=== PATIENT | female | born 1950 | race Caucasian/White ===

== ENCOUNTER → 2017-12-20 | Outpatient (CLI) | payer MEDICARE, OTHER ==
[~2017-12-20] MED LIST: ADVAIR 250/501 EA INH; AMOXICILLIN500 M2 PO; ASPIRIN325 M2 PO; ASPIRIN81 M1 PO; CELEXA20 MG PO; CIPRO500 MG PO; CYCLOBENZAPRINE5 M3 PO; DELTASONE20 MG PO; FLAGYL500 MG PO; GABAPENTIN400 MG PO; HYDROCODONE BIT1 T11 PO; K-Dur 20MEQ20 MEQ PO; LEVOFLOXACIN500 MG PO; LITHIUM CARBON300 MG PO; LOPRESSOR25 MG PO; LORAZEPAM1 MG PO; MUCINEX D 600 M1 TE1 PO; MULTIPLE VITAMI1 TAB PO; Miralax Powder255 GM PO; NAPROSYN500 MG PO; NAPROXEN SOD550 MG PO; OXYBUTYNIN5 MG PO; PERCOCET 325 MG1 TA7 PO; PRILOSEC40 MG PO; PROAIR HFA0.09 MG/AC IH; PROTONIX40 MG PO; REMERON SOLTAB15 MG PO; SPIRIVA 5 CAPS18 MCG INH; SYMBICORT1 AER IH; TYLENOL W/CODEI1 TA2 PO; VENTOLIN H0.09 MG/AC INH; VIBRAMYCIN100 MG PO; WARFARIN2 MG PO
== END | disposition home or self-care (01) ==
LOC: RAD 13:40
DX: M54.5 Low back pain (principal); M54.2 Cervicalgia; M54.9 Dorsalgia, unspecified

== ENCOUNTER → 2018-02-01 | Outpatient (CLI) | payer MEDICARE, OTHER | LOC: MAMMO 10:15 | DX: Z12.31 Encounter for screening mammogram for malignant neoplasm of breast (principal); M85.859 Other specified disorders of bone density and structure, unspecified thigh; Z78.0 Asymptomatic menopausal state; Z90.710 Acquired absence of both cervix and uterus ==

== ENCOUNTER → 2018-03-02 | Outpatient (CLI) | payer MEDICARE, OTHER | END | disposition home or self-care (01) | LOC: RAD 10:27 | DX: M54.6 Pain in thoracic spine (principal) ==

== ENCOUNTER 2018-10-22 09:59 | Emergency (ER) | payer OTHER ==
[~2018-10-22] VITALS: Ht 175.2 cm; Wt 54.0 kg
--- NOTE | ~2018-10-22 | EKG ---
[place], [place] ELECTROCARDIOGRAM REPORT NAME: NYA IBARRA UNIT #: [id number] ROOM: DOCTOR: EPIPHANY DRAFT REPORT BIRTHDATE: [birth year] [facility] Test Date: 2018-10-22 Test Time: 10:00:57 Pat Name: NYA IBARRA Department: Room: Gender: F Natural Resource Technician: Glendy Triana : 1950 Requested By: BONITA WILSON Order Number: [id number] Reading MD: Aftab Vasquez MD Measurements Intervals [place] Rate: 112 P: 255 [place]: 108 QRS: -16 QRSD: 88 T: 185 QT: 368 QTc: 503 Interpretive Statements Sinus or ectopic atrial tachycardia Consider left ventricular hypertrophy Abnrm T, probable ischemia, anterolateral lds ST elevation, consider lateral injury Prolonged QT interval Artifact in lead(s) II,aVR,aVF,V4,V5,V6 No previous ECG available for comparison Electronically Signed On 10-23-2018 3:59:24 PST by Aftab Vasquez MD CM:EKGRPT:ELECTROCARDIOGRAM REPORT [id number] BONITA SALINAS DRAFT REPORT BONITA WILSON MD
--- NOTE | ~2018-10-22 | EKG ---
[place], [place] ELECTROCARDIOGRAM REPORT NAME: NYA IBARRA UNIT #: [id number] ROOM: DOCTOR: EPIPHANY DRAFT REPORT BIRTHDATE: [birth year] [facility] Test Date: 2018-10-22 Test Time: 10:09:50 Pat Name: NYA IBARRA Department: Room: Gender: F Software Clerk: Glendy Triana : 1950 Requested By: BONITA WILSON Order Number: [id number] Reading MD: Aftab Vasquez MD Measurements Intervals [place] Rate: 105 P: 72 MT: 238 QRS: -20 QRSD: 90 T: 227 QT: 350 QTc: 463 Interpretive Statements Sinus tachycardia Prolonged MT interval Left ventricular hypertrophy Anterior infarct, acute ST elevation, consider inferior injury No previous ECG available for comparison Electronically Signed On 10-23-2018 3:59:29 PST by Aftab Vasquez MD CM:EKGRPT:ELECTROCARDIOGRAM REPORT [id number] BONITA SALINAS DRAFT REPORT BONITA WILSON MD
--- NOTE | ~2018-10-22 | EKG ---
[place], [place] ELECTROCARDIOGRAM REPORT NAME: NYA IBARRA UNIT #: [id number] ROOM: DOCTOR: EPIPHANY DRAFT REPORT BIRTHDATE: [birth year] [facility] Test Date: 2018-10-22 Test Time: 11:53:32 Pat Name: NYA IBARRA Department: Room: Gender: Production Control Clerk: [id number] : 1950 Requested By: BONITA WILSON Order Number: [id number] Reading MD: Aftab Vasquez MD Measurements Intervals [place] Rate: 121 P: 264 [place]: 110 QRS: -15 QRSD: 85 T: 227 QT: 350 QTc: 497 Interpretive Statements Sinus or ectopic atrial tachycardia Consider left ventricular hypertrophy Abnormal T, probable ischemia, widespread Anterior ST elevation, probably due to LVH Baseline wander in lead(s) V5,V6 No previous ECG available for comparison Electronically Signed On 10-23-2018 4:00:36 PST by Aftab Vasquez MD CM:EKGRPT:ELECTROCARDIOGRAM REPORT [id number] BONITA SALINAS DRAFT REPORT BONITA WILSON MD
[~2018-10-22 09:59] MED LIST changes: +MULTIPLE VITAM1 EAC1 PO; -MULTIPLE VITAMI1 TAB PO
[2018-10-22 10:26] LABS: BASO % 0.4 % (0.0-1.0); HEMATOCRIT 53.9 % (37.0-47.0); HEMOGLOBIN 17.5 g/dl (12.0-16.0); LYMPH # 0.9 10*3/uL (1.3-4.4); LYMPH % 9.3 % (27.0-41.0); MEAN CELL VOLUME 93.3 fl (81.0-99.0); MEAN CORPUSCULAR HGB 30.3 pg (27.0-31.0); MEAN CORPUSCULAR HGB CONC 32.5 g/dl (33.0-37.0); MEAN PLATELET VOLUME 11.3 fl (9.6-12.3); MONO # 0.8 10*3/uL (0.1-1.0); MONO % 8.4 % (3.0-9.0); NEUT % 81.6 % (47.0-73.0); PLATELET COUNT AUTOMATED 175 10*3/uL (130-400); RED BLOOD COUNT 5.78 10*6/uL (4.10-5.10); RED CELL DISTRI WIDTH 13.3 % (0-14.5); WHITE BLOOD COUNT 9.8 10*3/uL (4.8-10.8)
[2018-10-22 10:39] LABS: ACT PARTIAL THROMBO TIME 28.4 SECONDS (20.8-31.5); INTERNATIONAL NORM RATIO 1.3 (2.0-3.5)
[2018-10-22 11:06] LABS: ALBUMIN 3.4 gm/dl (3.1-4.5); ALKALINE PHOSPHATASE 86 U/L (45-117); BUN 11 mg/dl (7-24); CHLORIDE 101 mmol/L (98-107); CREATININE 1.03 mg/dL (0.55-1.02); POTASSIUM 3.4 mmol/L (3.5-5.1); SGOT/AST 34 IU/L (3-35); SGPT/ALT 24 U/L (12-78); SODIUM 139 mmol/L (136-145); TOTAL PROTEIN 8.4 gm/dL (6.4-8.2)
[2018-11-20] MEDS ORDERED: VITAMIN D32000 UNI1 PO (11:45)
[2018-11-20] MEDS ORDERED: ENOXAPARIN40 MG/0.2 SC (11:45)
[2018-11-20] MEDS ORDERED: LASIX40 MG PO (11:45)
[2018-11-23] MEDS ORDERED: RIVASTIGMINE TAR3 M1 PO (09:17)
[2018-11-23] MEDS ORDERED: RISPERIDONE1 MG PO (09:17)
[2018-11-23] MEDS ORDERED: MIRTAZAPINE15 M2 PO (09:17)
== END 2018-10-22 12:45 | disposition short-term general hospital (02) ==
LOC: ED 09:59
PROVIDERS: Emergency Medicine
DX: I21.4 Non-ST elevation (NSTEMI) myocardial infarction (principal); Z91.013 Allergy to seafood; Z79.899 Other long term (current) drug therapy; Z79.82 Long term (current) use of aspirin

== ENCOUNTER 2018-10-29 11:22 | Inpatient (IN) | payer OTHER ==
[2018-10-29] VITALS (8 sets, daily range): BP systolic 113–124; BP diastolic 51–70
[~2018-10-29] VITALS: Ht 175.2 cm; Wt 53.2 kg
--- NOTE | ~2018-10-29 | PR ---
[place], [place] PROGRESS NOTE NAME: NYA IBARRA UNIT #: [id number] ROOM: 521 DOCTOR: LAURA MCLAIN MD,VIRAL BIRTHDATE: [birth year] DOS: 11/01/2018 PULMONARY PROGRESS NOTE SUBJECTIVE: The patient continued with severe cough, which is noted nonproductive. The patient is n.p.o. past midnight bronchoscopy planned for today. Shortness of breath occurs with exertion, but it is improving. The wheezing has been still noted intermittently. There were no symptoms of chest pain. Chest tightness was reported. The patient denies symptoms of fever or chills. Denies symptoms of hemoptysis, headache or diplopia. Denies any symptoms of nausea, vomiting. Medications were reviewed. They were noted all negative. PHYSICAL EXAMINATION: VITAL SIGNS: Normal temperature, respiratory rate of 18-20, heart rate of 66-59, blood pressure 148/76-141/79. Pulse oxygen saturation on 2 liters nasal cannula was 96% saturation. HEENT: Examination shows head was atraumatic. Eyes nonicterus. NECK: Supple. CARDIOVASCULAR: S1, S2 audible. LUNGS: Generalized reduced air entry of the lung was still noted with question of wheezing. There were no crackles. ABDOMEN: Soft, nontender. Bowel sounds present. EXTREMITIES: Without any acute edema. MUSCULOSKELETAL: Without acute deformities. CENTRAL NERVOUS SYSTEM: Cranial nerves 2-12 intact. LABORATORY DATA: CBC today: WBC count 13.6, remaining CBC was normal. The BMP that was done this morning, BUN 19, creatinine was normal. Potassium 5.7, mildly elevated sodium 135. The blood culture, which were taken on admission on the 10/30/2018, so far showed no bacterial growth. IMPRESSION: 1. Acute pneumonia. The patient with severe mucoid impaction of the airways, greater on the right than the left side. 2. Acute exacerbation of chronic obstructive pulmonary disease as well. PLAN OF MANAGEMENT: Proceed with the fiberoptic bronchoscopy as planned for this patient at this time. No changes in medical management will be necessary. Medication adjustment or others if necessary will be done after bronchoscopy. Continue oxygen supplementation, maintain pulse ox 92% or greater. [place], [place] PROGRESS NOTE NAME: NYA IBARRA UNIT #: [id number] ROOM: 521 DOCTOR: VIRAL BAUM MD BIRTHDATE: [birth year] VIRAL SANCHEZ MD CM:SHANT [id number] VIRAL MCLAIN MD 11/01/18 165 interface
--- NOTE | ~2018-10-29 | CON ---
[place], [place] REPORT OF CONSULTATION [id number] UNIT #: [id number] ROOM: 521 DOCTOR: VIRAL BAUM MD BIRTHDATE: [birth year] DOS: 10/30/2018 PULMONARY CONSULTATION, EVALUATION AND MANAGEMENT REASON FOR CONSULTATION: Assess the patient for exacerbation of COPD. HISTORY OF PRESENT ILLNESS: This is a 68-year-old white female patient who has been known to me with history of COPD. The patient with chronic nicotine dependence. She has been admitted to the hospital under hospice services on 10/29/2018. She has been admitted to the hospital under the hospitalist service as the patient has been reported with symptoms of increasing shortness of breath. She has been sent to the Emergency Room from the primary care physician's office for the further assessment of current ongoing respiratory symptoms, which are described to be severe chest pain. The patient was not reported excessive chest congestion, productive cough and noted shortness of breath and wheezing. She has been recently sent from the Emergency Room to [facility] because of non-ST segment elevation myocardial infarction. She underwent cardiac catheterization as reported in the history with EF noted decreased at 30% and the coronary artery. The patient could not be stented. She has a LifeVest placed because of current decreased ejection fraction and for further medical management. This morning, she was sitting on the bed noted intermittent cough without any sputum expectoration. Denies any symptoms of chest pain. REVIEW OF SYSTEMS: CONSTITUTIONAL SYMPTOMS: Fatigue and tiredness noted. EYES: Denies any burning, redness, or tenderness. EARS, NOSE, AND THROAT: Denies sore throat, hoarseness, otalgia, postnasal drainage or epistaxis. CARDIOVASCULAR: Denies angina pain, edema or pain of the lower extremities. GASTROINTESTINAL: Denies dysphagia, nausea, vomiting, diarrhea, abdominal pain, hematemesis, melena, or hematochezia. GENITOURINARY: No dysuria, suprapubic pain or hematuria. MUSCULOSKELETAL: The patient was not reported with any joint pain, redness or tenderness. CENTRAL NERVOUS SYSTEM: Confusion noted on admission seemed to be clear at this time. The patient noted fully awake, alert, oriented. There were no history of seizures reported. Remaining systems were reviewed, they were noted all negative. PAST MEDICAL HISTORY: 1. Known with history of COPD/centrilobular emphysema. 2. History of coronary artery disease. 3. Recent non-ST segment elevation myocardial infarction. 4. Hepatitis C. 5. Hyperlipidemia. 6. History of urinary incontinence previously. 7. History of intermittent marijuana use. 8. Peripheral vascular disease. [place], [place] REPORT OF CONSULTATION NAME: NYA IBARRA UNIT #: [id number] ROOM: 521 DOCTOR: SHAYY BAUM MDM BIRTHDATE: [birth year] 9. Nicotine dependence. PAST SURGICAL HISTORY: Reported a; 1. Tubal ligation. 2. Cholecystectomy. 3. Foot surgery. 4. Left hip surgery of the patient after the accident. 5. Complete hysterectomy. 6. Cardiac catheterization. SOCIAL HISTORY: The patient is and lives at home. Denies the history of alcohol use. History of intermittent marijuana use was known. The patient does report tobacco use, long-term smoking at least a pack of cigarettes per day. FAMILY HISTORY: The patient was reported that father at the age of 87 with complication of prostate cancer, mesothelioma. Mother at age of 7070 years old with complication of heart problems, congestive heart failure and coronary artery disease. HOME MEDICATIONS: Listed Ventolin HFA, Zyrtec, citalopram, Plavix, Lasix, lisinopril, lovastatin, metoprolol tartrate, multivitamin, potassium chloride, and Lyrica. CURRENT MEDICATIONS: Administered on this hospitalization were noted as Aldactone, Imdur, metoprolol succinate, Plavix, lisinopril, citalopram, Lovenox for DVT prophylaxis, oxybutynin chloride, simvastatin, Mucinex, Solu-Medrol 40 mg b.i.d., DuoNeb, IV vancomycin, Levaquin and Zosyn. DRUG ALLERGIES: NOTED ALLERGIES TO THE SHELLFISH. PHYSICAL EXAMINATION: GENERAL: This is a 68-year-old white female patient currently sitting on side of bed without any distress. Height of 5 feet 9 inches, weight 243 pounds, BMI 21. VITAL SIGNS: For the patient which were recorded shows a normal temperature, respiratory rate 18-19, heart rate 74-68, blood pressure 124/71-117/59. Pulse oxygen saturation 99% saturation on room air. HEENT: Head was atraumatic. Eyes nonicterus. NECK: Supple. CARDIOVASCULAR: S1, S2 is audible. LUNGS: The patient was noted with general reduction in breath sounds with expiratory wheezing without any crackles. ABDOMEN: Soft, flat, nontender, bowel sounds present. EXTREMITIES: Without any acute edema. MUSCULOSKELETAL: Without acute deformities. CENTRAL NERVOUS SYSTEM: Cranial nerves 2-12 intact. LABORATORY DATA: CT scan of the head done in the Emergency Room yesterday for the assessment of confusion. The patient was reported no acute intracranial [place], [place] REPORT OF CONSULTATION NAME: NYA IBARRA UNIT #: [id number] ROOM: 521 DOCTOR: LAURA MCLAIN MD,VIRAL BIRTHDATE: [birth year] abnormalities. Moderate small vessel ischemic changes noted. Troponins noted minimally elevated at 0.69-0.57 yesterday as well. CBC that was done yesterday in the Emergency Room does have 0.2, hemoglobin 17.3, hematocrit 52.1, platelet count was normal. CMP that was done as normal BUN and creatinine, glucose 173. CO2 was 3. This morning CBC was noted as normal. PT/INR was noted normal this morning. BMP that was done this morning, glucose 144. BUN and creatine normal. CO2 of 39, remaining electrolytes were normal as well. Arterial blood gas, pH of 7.45, pCO2 of 38, pO2 66 on 2 liters nasal cannula. Chest x-ray one-view done showed changes of COPD, hyperinflation of the lungs without any acute pulmonary infiltration. CT scan of the chest that was done without contrast yesterday reviewed as well, does not show any acute pulmonary infiltration, mucus impaction was noted in multiple subsegments of the right and the left lower lobe and diffuse emphysema changes was noted in the lungs appeared to be panlobular in appearance. The lack of the IV contrast does limit the mediastinal structure view; however, there was no gross lymphadenopathy noted in the mediastinal structures. 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 IMPRESSION: 1. The patient who has been currently admitted to the hospital noted with severe acute exacerbation of chronic obstructive pulmonary disease with mucus impaction in the major airways was noted mucocele. 2. Chronic persistent nicotine dependence as well. 3. History of recent non-ST segment myocardial infarction, which was currently treated conservatively, not amenable for further management. 4. Appeared to be panlobular emphysema related to alpha-1 antitrypsin deficiency cannot be excluded. 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 5. History of general anxiety disorder. 6. Admission for this patient findings of elevation of the hematocrit most likely secondary to volume contraction patient and/or secondary polycythemia would be considered because of chronic hypoxia. PLAN OF MANAGEMENT: She has been started on nicotine replacement patches. We will consider fiberoptic bronchoscopy to help clear mucus impaction, which are noted severe. Continue current dose of Solu-Medrol. Change the DuoNeb to albuterol sulfate for COPD management. Obtain the sputum for Gram stain and culture. The patient was noted very broad spectrum intravenous antibiotics, all the antibiotic will be discontinued. The patient was started on oral doxycycline that should suffice medical acute bronchitis. Other therapy, plan of management. Additional treatment changes will be made based on the progression of the illness. Supportive care therapy, plan of management care as well. Additional treatment changes will be recommended based on the progression of the illness. Oxygen supplementation if necessary to maintain a pulse ox saturation 92% or greater. Usual care with other therapies plan and management as well. Thanks for allowing me to participate in the care of this patient. [place], [place] REPORT OF CONSULTATION NAME: NYA IBARRA UNIT #: [id number] ROOM: 521 DOCTOR: VIRAL BAUM MD BIRTHDATE: [birth year] VIRAL SANCHEZ MD CM:CONSTR:REPORT OF CONSULTATION 1259 10/30/182022 interface
--- NOTE | ~2018-10-29 | EKG ---
[place], [place] ELECTROCARDIOGRAM REPORT NAME: NYA IBARRA UNIT #: [id number] ROOM: 521 DOCTOR: BRAD DRAFT REPORT BIRTHDATE: [birth year] [facility] Test Date: 2018-10-29 Test Time: 14:25:59 Pat Name: NYA IBARRA Department: Room: 521 Gender: F Crab Catcher: Glendy Triana : 1950 Requested By: ARLENE BROTHERS Order Number: [id number] Reading MD: Pedro Scott MD Measurements Intervals [place] Rate: 69 P: 85 [place]: 202 QRS: 13 QRSD: 90 T: 136 QT: 471 QTc: 505 Interpretive Statements Sinus rhythm Left ventricular hypertrophy Abnrm T, probable ischemia, anterolateral lds Prolonged QT interval Baseline wander in lead(s) V1 Compared to ECG 10/22/2018 11:53:32 Prolonged QT interval now present T-wave abnormality no longer present T-wave abnormality no longer present ST (T wave) deviation no longer present Possible ischemia still present Electronically Signed On 11-02-2018 9:41:17 PDT by Pedro Scott MD CM:EKGRPT:ELECTROCARDIOGRAM REPORT [id number] 0941 ARLENE GILLESPIE DRAFT REPORT ARLENE BROTHERS DO
--- NOTE | ~2018-10-29 | PR ---
[place], [place] PROGRESS NOTE NAME: NYA IBARRA [facility] #: [id number] UNIT #: [id number] ROOM: 521 DOCTOR: LAURA MCLAIN MD,VIRAL BIRTHDATE: [birth year] DOS: 10/31/2018 SUBJECTIVE: She has been noted comfortable at this time, resting on the bed, still noted significant cough, but there was no sputum expectoration. Denies symptoms of fever or chills. Denies symptoms of hemoptysis. Denies symptoms of nausea or vomiting. The patient was continued, bronchodilators, oxygen supplementation, corticosteroids without any changes. Oxygen requirement, the patient remains the same as of yesterday. Denies symptoms of headache, or diplopia. Remaining systems were reviewed. They were noted all negative. PHYSICAL EXAMINATION: GENERAL: The patient was currently comfortably lying in the bed without acute distress. VITAL SIGNS: At this morning assessment with a normal temperature recorded this morning, respirations 18, heart rate 71, blood pressure 118/64. The pulse oxygen saturation on 3 liters nasal cannula 97% saturation. HEENT: Examination shows head was atraumatic. Eyes nonicterus. NECK: Supple. CARDIOVASCULAR: S1, S2 audible. LUNGS: Noted decreased breath sounds bilateral. Expiratory wheezing, no crackles. ABDOMEN: Soft, nontender. Bowel sounds present. EXTREMITIES: Without acute edema. MUSCULOSKELETAL: Without any acute deformities. CENTRAL NERVOUS SYSTEM: Cranial nerves 2-12 intact. LABORATORY DATA: Arterial blood gas, pH of 7.45, pCO2 of 38, pO2 of 66.3. Ammonia level noted as 12. IMPRESSION: 1. The patient was noted with an ongoing acute exacerbation of chronic obstructive pulmonary disease with acute pneumonia with a severe impaction of the patient in the endobronchial tree for bilaterally were noted, greater on the right than the left side in the lower lungs. 2. History of chronic nicotine dependence for as well and other medical illnesses. PLAN OF THERAPY: Continuation of the bronchodilators and oxygen supplementation as planned. Continuation of the bronchodilators. Continue corticosteroids. Oxygen supplementation to maintain pulse oxygen saturation 90% or greater. The patient was assessed with therapeutic bronchoscopy that will be done tomorrow morning. She was agreeable for the procedure. The risk and benefits were discussed. N.p.o. past midnight status will be achieved today. [place], [place] PROGRESS NOTE NAME: NYA IBARRA UNIT #: [id number] ROOM: 521 DOCTOR: VIRAL BAUM MD BIRTHDATE: [birth year] VIRAL SANCHEZ MD CM:PNTRANS 5 5 VIRAL MCLAIN MD 10/31/18905 interface
--- NOTE | ~2018-10-29 | EKG ---
[place], [place] ELECTROCARDIOGRAM REPORT NAME: NYA IBARRA UNIT #: [id number] ROOM: 521 DOCTOR: BRAD DRAFT REPORT BIRTHDATE: [birth year] [facility] Test Date: 2018-10-29 Test Time: 17:32:38 Pat Name: NYA IBARRA Department: Room: 521 Gender: F Marketing Technology Coordinator: Glendy Triana : 1950 Requested By: ARLENE BROTHERS Order Number: [id number] Reading MD: Pedro Scott MD Measurements Intervals [place] Rate: 65 P: 71 [place]: 215 QRS: 4 QRSD: 87 T: 191 QT: 506 QTc: 527 Interpretive Statements Sinus rhythm Borderline prolonged MI interval LVH w/ repol abnormalities, possible ischemia Prolonged QT interval Baseline wander in lead(s) V3,V4 Compared to ECG 10/22/2018 11:53:32 Prolonged QT interval now present T-wave abnormality no longer present T-wave abnormality no longer present ST (T wave) deviation no longer present Possible ischemia still present Electronically Signed On 11-02-2018 9:41:35 PDT by Pedro Scott MD CM:EKGRPT:ELECTROCARDIOGRAM REPORT [id number] 0941 ARLENE GILLESPIE DRAFT REPORT ARLENE BROTHERS DO
--- NOTE | ~2018-10-29 | EKG ---
[place], [place] ELECTROCARDIOGRAM REPORT NAME: NYA IBARRA UNIT #: [id number] ROOM: 521 DOCTOR: BRAD DRAFT REPORT BIRTHDATE: [birth year] [facility] Test Date: 2018-10-29 Test Time: 11:29:50 Pat Name: NYA IBARRA Department: Room: 521 Gender: F Supervisor Curing Room: Glendy Triana : 1950 Requested By: ARLENE BROTHERS Order Number: [id number] Reading MD: Pedro Scott MD Measurements Intervals [place] Rate: 63 P: 82 [place]: 201 QRS: -11 QRSD: 91 T: 238 QT: 496 QTc: 508 Interpretive Statements Sinus rhythm Consider left atrial enlargement Left ventricular hypertrophy Abnormal T, probable ischemia, widespread Prolonged QT interval Compared to ECG 10/22/2018 11:53:32 Prolonged QT interval now present ST (T wave) deviation no longer present T-wave abnormality still present Possible ischemia still present Electronically Signed On 11-02-2018 9:40:56 PDT by Pedro Scott MD CM:EKGRPT:ELECTROCARDIOGRAM REPORT [id number] 0940 ARLENE GILLESPIE DRAFT REPORT ARLENE BROTHERS DO
--- NOTE | ~2018-10-29 | PR ---
[place], [place] PROGRESS NOTE [facility]: [facility]RA [id number] UNIT #: [id number] ROOM: 521 DOCTOR: VIRAL BAUM MD BIRTHDATE: [birth year] DOS: 11/03/2018 PULMONARY PROGRESS NOTE SUBJECTIVE: The patient continued to show improvement and reduction in the respiratory symptoms, were not requiring any oxygen supplementation this morning, comfortably sitting on the chair. Denies symptoms of chest pain, fever or chills, shortness of breath has been improving. She was ambulating. OBJECTIVE: VITAL SIGNS: For the patient, which have recorded shows the temperature recorded normal, respiratory rate 16, heart rate 63, blood pressure 135/65. Her pulse oxygen saturation on room air at rest was 94% saturation. HEENT: Head was atraumatic. Eyes: No icterus. NECK: Supple. CARDIOVASCULAR: S1, S2 audible. LUNGS: The patient without any wheeze or crackles. ABDOMEN: Soft, nontender. Bowel sounds present. EXTREMITIES: The patient was noted without any acute edema. LABORATORY DATA: The chest x-ray that was done this morning shows marked improvement and resolution of acute pulmonary infiltration. The left lower lobe with improvement in aeration, severe COPD changes, hyperinflation were noted. The cultures of the bronchial washing noted normal darien. IMPRESSION: 1. Resolving acute pneumonia with marked improvement acute exacerbation of chronic obstructive pulmonary disease. 2. History of chronic nicotine dependence. PLAN OF MANAGEMENT: The patient could be discharged home from the pulmonary standpoint. Outpatient follow up to be established in the office post-discharge of hospital. [place], [place] PROGRESS NOTE NAME: NYA IBARRA UNIT #: [id number] ROOM: 521 DOCTOR: VIRAL BAUM MD BIRTHDATE: [birth year] VIRAL SANCHEZ MD CM:PNTRANS 1504 1557 VIRAL MCLAIN MD 11/03/18 1556 interface
--- NOTE | ~2018-10-29 | PROC NOTE ---
[place], [place] PROCEDURE NOTE [id number] UNIT #: [id number] ROOM: 521 DOCTOR: LAURA MCLAIN MD,VIRAL BIRTHDATE: [birth year] DOS: 11/01/2018 FIBEROPTIC BRONCHOSCOPY NOTE PREOPERATIVE DIAGNOSES: The patient has severe impaction of the mucosa noted in endobronchial tree bilaterally with evidence of acute pneumonia and nonproductive cough. POSTOPERATIVE DIAGNOSES: Removal of the severe impaction of the mucus in the lower lungs predominant bilaterally. COMPLICATIONS: None. SEDATION: Conscious sedation. PROCEDURE DESCRIPTION: Informed consent obtained for the patient. The patient brought to the OR and placed in supine position. Conscious sedation administered by the Anesthesia Department. After that, airway introduced in the mouth. Bronchoscope advanced to airway into laryngeal area. Epiglottis and vocal cord seen. Vocal cords moving symmetrically with movements, yellowish in color. The bronchoscope advanced to the vocal cord into the tracheal lumen noted with moderate amount of very thick mucoid secretion suctioned out the jaime level. The right upper, right middle, right lower, left upper, lingular lower bronchi all examined. Large amount of mucus impaction noted mainly in the right and the left lower lobe endobronchial tree. Bronchial washing taken all the bronchial subsegments. There were no endobronchial obstructive lesions seen. Procedure well tolerated by the patient without any difficulty. Postoperative finding will be discussed with the patient once the patient recovered from the effects of acute sedation. VIRAL SANCHEZ MD CM:PROCNOTE:PROCEDURE NOTE 1231 1651 VIRAL MCLAIN MD
--- NOTE | ~2018-10-29 | PR ---
[place], [place] PROGRESS NOTE NAME: NYA IBARRA UNIT #: [id number] ROOM: 521 DOCTOR: VIRAL BAUM MD BIRTHDATE: [birth year] DOS: 11/02/2018 PULMONARY PROGRESS NOTE SUBJECTIVE: She has a bronchoscopy done yesterday with copious amount of secretion removed from the endobronchial tree. She has been noted severe impaction of the mucus in the airways as well. She has not been noted symptoms of fever or chills. Denies symptoms of hemoptysis. Denies symptoms of nausea, vomiting or diarrhea. The respiratory symptoms have been improving with current medical management at this time with antibiotics, bronchodilators and oxygen. OBJECTIVE: VITAL SIGNS: For the patient which has been recorded shows a normal temperature, respiratory rate 18, heart rate 70, blood pressure 102/68-153/79. The pulse oxygen saturation recorded as 96% on room air. HEENT: Examination shows head was atraumatic. Eyes: No icterus. NECK: Supple. CARDIOVASCULAR: S1, S2 audible. LUNGS: Decreased breath sound, improvement in air entry, scattered wheezing was present. ABDOMEN: Soft, nontender, bowel sounds present. EXTREMITIES: The patient was noted without any acute edema, clubbing or cyanosis. LABORATORY DATA: The Gram stain of the bronchial washings yesterday, many white blood cells, moderate epithelial cells, moderate budding yeast, rare gram-positive cocci in pairs. The preliminary culture noted normal darien, final culture results were pending. IMPRESSION: 1. The patient with acute pneumonia, right lower lobe, severe impaction of the mucus with mucocele formation several endobronchial subsegments, status post bronchoscopy, reduction and improvement in respiratory symptom. 2. Resolving acute exacerbation of chronic obstructive pulmonary disease. PLAN OF MANAGEMENT: Continue current dose of Solu-Medrol, bronchodilators, antibiotics. Repeat chest x-ray in the morning to reassess and possible home discharge afterwards. In the meantime, continue the therapy, plan of management, care plan as in progress. Usual care. [place], [place] PROGRESS NOTE NAME: NYA IBARRA UNIT #: [id number] ROOM: 521 DOCTOR: VIRAL BAUM MD BIRTHDATE: [birth year] VIRAL SANCHEZ MD CM:PNTRANS [id number] VIRAL MCLAIN MD 11/02/181655 interface
[2018-10-29 11:40] LABS: BASO % 0.4 % (0.0-1.0); HEMATOCRIT 52.1 % (37.0-47.0); HEMOGLOBIN 17.3 g/dl (12.0-16.0); LYMPH # 1.5 10*3/uL (1.3-4.4); LYMPH % 13.4 % (27.0-41.0); MEAN CELL VOLUME 90.8 fl (81.0-99.0); MEAN CORPUSCULAR HGB 30.1 pg (27.0-31.0); MEAN CORPUSCULAR HGB CONC 33.2 g/dl (33.0-37.0); MEAN PLATELET VOLUME 10.7 fl (9.6-12.3); MONO # 1.2 10*3/uL (0.1-1.0); MONO % 10.4 % (3.0-9.0); NEUT # 8.4 10*3/uL (2.3-7.9); NEUT % 74.9 % (47.0-73.0); PLATELET COUNT AUTOMATED 268 10*3/uL (130-400); RED BLOOD COUNT 5.74 10*6/uL (4.10-5.10); RED CELL DISTRI WIDTH 12.8 % (0-14.5); WHITE BLOOD COUNT 11.2 10*3/uL (4.8-10.8)
[2018-10-29 11:48] LABS: ACT PARTIAL THROMBO TIME 24.7 SECONDS (20.8-31.5); INTERNATIONAL NORM RATIO 1.3 (2.0-3.5)
[2018-10-29 12:04] LABS: ALKALINE PHOSPHATASE 83 U/L (45-117); BUN 13 mg/dl (7-24); CHLORIDE 99 mmol/L (98-107); CREATININE 0.95 mg/dL (0.55-1.02); SGOT/AST 21 IU/L (3-35); SGPT/ALT 20 U/L (12-78); SODIUM 136 mmol/L (136-145); TOTAL PROTEIN 8.7 gm/dL (6.4-8.2)
[2018-10-29 12:08] LABS: TROPONIN I 0.065 ng/ml (<0.045)
[2018-10-29 12:15] LABS: BILIRUBIN NEGATIVE (NEGATIVE); BLOOD NEGATIVE (NEGATIVE); CLARITY SL CLOUDY (CLEAR); COLOR YELLOW (YELLOW); GLUCOSE NEGATIVE (NEGATIVE); KETONE NEGATIVE (NEGATIVE); LEUKO ESTERASE NEGATIVE (NEGATIVE); NITRITE NEGATIVE (NEGATIVE); SPECIFIC GRAVITY <= 1.005 (1.005-1.030)
[2018-10-29 12:31] LABS: BACTERIA 1+; HYALINE CAST 20-25; MUCOUS 1+
--- NOTE | 2018-10-29 15:00 | NUR ---
DR LEWIS AWARE OF PT'S CRITICAL TROPONIN LEVEL OF 0.069.
--- NOTE | 2018-10-29 16:15 | NUR ---
A 68, admitted to 5E, under the services of IRWIN Montano DO with a diagnosis of COPD,ELEVATED TROPONIN'S.. Chief complaint is SHORTNESS OF BREATHE.. Patient arrived via bed from ER. Monitor applied. Initial assessment completed. Vital signs taken and recorded. IRWIN MONTANO DO notified of admission to the unit. Orders received. See assessment for past medical history, medications and allergies. Patient and/or family oriented to unit. [facility] visitation policy reviewed. Clothing/patient valuable form completed. EVANGELINA GIBBONS
--- NOTE | 2018-10-29 16:46 | NUR ---
HOME MEDS RECONCILED WITH PT,DAUGHTER AND LIST AT BEDSIDE.
[2018-10-29] MEDS ORDERED: LYRICA50 M1 PO (16:54)
[2018-10-29] MEDS ORDERED: ZESTRIL,PRINIVIL5 MG PO (16:55)
[2018-10-29] MEDS ORDERED: LOVASTATIN10 MG PO (16:55)
[2018-10-29] MEDS ORDERED: OXYBUTYNIN CHLOR5 MG PO (16:56)
[2018-10-29] MEDS ORDERED: ALL DAY ALLERGY10 M2 PO (16:57)
[2018-10-29] MEDS ORDERED: PLAVIX75 M1 PO (16:58)
[2018-10-29] MEDS ORDERED: LASIX40 MG PO (16:58)
[2018-10-29] MEDS ORDERED: TOPROL XL50 M1 PO (16:59)
[2018-10-29] MEDS ORDERED: POTASSIUM CHLO20 ME4 PO (17:00)
--- NOTE | 2018-10-29 17:36 | NUR ---
NOTIFIED DR BRYANT OF CRITICAL TROPONIN 0.0574 TRENDING DOWN FROM PREVIOUS.
--- NOTE | 2018-10-29 18:00 | NUR ---
NOTIFIED DR Abimael AUGUSTIN OF NEW CONSULT FOR SLIGHTLY ELEVATED TROPONIN'S AND RECENT CT. NO NEW ORDERS.
--- NOTE | 2018-10-29 18:03 | NUR ---
NOTIFIED DR SANCHEZ OF NEW CONSULT FOR COPD.
[2018-10-30] VITALS: BP 117/60
--- NOTE | 2018-10-30 01:45 | NUR ---
PT INSTRUCTED AND DID FLUTTER CORRECTLY
[2018-10-30 06:40] LABS: BASO % 0.2 % (0.0-1.0); LYMPH # 1.1 10*3/uL (1.3-4.4); LYMPH % 11.1 % (27.0-41.0); MEAN CELL VOLUME 90.6 fl (81.0-99.0); MEAN CORPUSCULAR HGB 29.7 pg (27.0-31.0); MEAN CORPUSCULAR HGB CONC 32.8 g/dl (33.0-37.0); MEAN PLATELET VOLUME 10.8 fl (9.6-12.3); MONO # 0.7 10*3/uL (0.1-1.0); MONO % 7.4 % (3.0-9.0); NEUT # 7.8 10*3/uL (2.3-7.9); NEUT % 80.5 % (47.0-73.0); PLATELET COUNT AUTOMATED 247 10*3/uL (130-400); RED BLOOD COUNT 4.88 10*6/uL (4.10-5.10); RED CELL DISTRI WIDTH 12.8 % (0-14.5); WHITE BLOOD COUNT 9.7 10*3/uL (4.8-10.8)
[2018-10-30 06:41] LABS: HEMOGLOBIN 14.5 g/dl (12.0-16.0)
[2018-10-30 06:42] LABS: HEMATOCRIT 44.2 % (37.0-47.0)
[2018-10-30 07:09] LABS: INTERNATIONAL NORM RATIO 1.1 (2.0-3.5)
--- NOTE | 2018-10-30 07:39 | NUR ---
PATIENT HAS NOT URINATED IN 12HOURS. PATIENT BLADDERED SCANNED ONLY SHOWING 250. PATIENT STATES SHE FEELS LIKE SHE HAS TO GO BUT HASNT. WILL CONTINUE TO MONITOR.
[2018-10-30 07:54] LABS: BUN 17 mg/dl (7-24); CHLORIDE 99 mmol/L (98-107); CREATININE 0.77 mg/dL (0.55-1.02); PHOSPHOROUS 3.7 mg/dL (2.5-4.9); POTASSIUM 3.5 mmol/L (3.5-5.1); SODIUM 136 mmol/L (136-145)
[2018-10-30 08:00] VITALS: BP 108/62
--- NOTE | 2018-10-30 10:30 | NUR ---
PHYSICAL THERAPY Patient evaluated on 5, full evaluation to follow. Continue with PT as per plan of care with fall, 02 and acute debility precautions. Home with home health RN,PT AND AIDES and family assist. PAtient is moderate complexity via chart review, tests and evaluation: [id number]. Thank you for this referral. Harmony Gardner,PT
--- NOTE | 2018-10-30 10:35 | NUR ---
Occupational Therapy evaluation completed on 5 with full eval to follow. Precautions include fall risk,O2 use,30% EF, limited activity tolerance,tremors, moderate complexity level 01648 via chart review, testing and evaluation. Recommend OT per POC and SNF but patient insists upon return home as plof. Thank you for this referral. Rhoda Samuel OTR/l
--- NOTE | 2018-10-30 11:10 | NUR ---
Career Services Coordinator in to talk to patient. Patient states lives at HOME with FRIEND. There are 4 steps in the home. Physician: Devyn MARROQUIN Pharmacy: [facility] Home health services: STATES [facility] WAS SUPPOSE TO COME BUT HAD NOT COME YET Patient's level of ADLs: INDEPENDENT Patient has working utilities: YES DME: NONE Follow-up physician's appointment after d/c: WILL BE MADE BY HOSPITALIST NURSE DIRECTOR ON DISCHARGE Does patient want to access PORTAL?: NO Discharge plan PT STATES SHE LIVES AT HOME WITH A FRIEND STATES SHE IS INDEPENDENT IN HER NEEDS FOR THE MOST PART. STATES [facility] WAS SUPPOSE TO COME IN BUT HAVE NOT YET. DENIES ANY OTHER NEEDS AT HOME. WILL CONTINUE TO FOLLOW. STATES SHE WILL HAVE A RIDE HOME ON DISCHARGE.. GUILLE GRIMES
[2018-10-30 12:00] VITALS: BP 118/62
[2018-10-30 12:15] LABS: ABG BASE EXCESS 2.6 mmol/L (-2.0-2.0); ABG HCO3 26.4 mmol/l (22-26); ABG O2 SATURATION 94.6 % (95-97); ARTERIAL BLOOD GAS PCO2 38.1 mmHg (35-45); ARTERIAL BLOOD GAS PH 7.45 (7.35-7.45); ARTERIAL BLOOD GAS PO2 66.3 mmHg (80-90)
--- NOTE | 2018-10-30 15:47 | NUR ---
REFERAL FAXED TO [facility]. PER MIGUEL PT IS ALREADY ACTIVE WITH THEM. WILL RESUME ON DISCHARGE.
[2018-10-30 16:00] VITALS: BP 92/47
--- NOTE | 2018-10-30 16:03 | NUR ---
PT UP TO BATHROOM WITH ONE ASSIST,VOIDED 200 CC YELLOW URINE.
--- NOTE | 2018-10-30 18:54 | NUR ---
PT UP AMBULATING IN HALLWAY WITH FAMILY. TOLERATING WELL.
[2018-10-30 20:00] VITALS: BP 100/51
[2018-10-31] VITALS: BP 117/61
[2018-10-31 07:40] VITALS: BP 118/64
--- NOTE | 2018-10-31 10:26 | NUR ---
OT NOTE Pt was seen this A.M. 1:1 for 27 minute OT session. Upon arrival pt was sitting upright in the recliner. Pt identified by name and and had no complaints at this time. Pt presented to therapy with continous 2L-O2 via NC which she remained on throughout entire session. Pt completed sit to stand transfer from chair level with CGA for safety. Followed by functional mobility into the bathroom with CGA and constant verbal prompts for O2 management to decrease risk of falls. There she transferred on/off standard commode with CGA and use of grab bar. Clothing management completed with SBA and toilet hygiene completed with distant supervision while seated. Pt then stood sink side while washing her hands, face, and completing hair care with CGA. Pt had one LOB that occured backwards while reaching overhead that was corrected with Hubert. Pt was educated throughout on pursed lip breathing technique. Pt then returned to the recliner for a seated rest break. Educated and provided pt with a handout on energy conservation with ADL's for increased I and enhanced safety. Then had pt attempt sit to stand from chair level without using UE's and pt was able to complete with SBA for safety. Pt completed five time sit to medical insurance coder 26 seconds. Throughout entire session pt required constant verbal prompts for attention to task, pursed lip breathing, and relaxation tehniques due to presenting with a "guarded" posture. Pt was left sitting upright in recliner under MAKEUP INSTRUCTOR supervision who arrived as session was ending. Continue with rec D/C plan to SNF or home. JASON Bowie
--- NOTE | 2018-10-31 10:55 | NUR ---
PHYSICAL THERAPY Patient seen this am 1;1 for therapy visit and was sitting up in bedside chair upon therapist arrival. Patient presented with continuous O2-2L via NC and recorded baseline SpO2 98 %, HR 60 bpm. Patient reports B LE weakness along with bouts of increased SOB this morning and was instructed on proper purse lip breathing technique. Patient performed seated B LE therex, all planes, x 15 reps each without c/o, followed by 3 consective sit to stand transfers SBA, demonstrating slight increased SOB. Patient also ambulated GASTROINTESTINAL TECHNICIAN/Min, 40'x 2, demonstrating very slow trell, decreaed heel strike and "guarded" gait pattern. Patient needed seated rest break between gait trials due to fatigue issues and returned to bedside chair with call light, tray table, telephone and body alarm for safety. Will continue per POC as tolerated, total treatment time 24 minutes. Darren Patel, MANAGER CAREER
[2018-10-31 12:00] VITALS: BP 118/60
--- NOTE | 2018-10-31 12:35 | NUR ---
OT NOTE Pt was seen this P.M. 1:! for second OT session consisting of 15 minutes. Upon arrival pt was sitting upright in the recliner. Pt identified by name and and had no complaints at this time. Pt presented to therapy with continous 2L-O2 via NC which she remained on throughout entire session. Pt completed functional mobility into the bathroom with CGA for safety with continous verbal prompts for O2 management due to poor safety awareness. Pt transferred on/off standard commode with SBA and use of grab bar. Pt then stood sink side while washing her hands with SBA. Throughout pt had good carry over of pursed lip breathing previously educated on. Pt was left sitting upright in recliner with call light in hand, tray table in place, and body alarm on for safety. Continue wiht rec D/C plan to SNF or home. FREDDIE Bowie/Jackie
--- NOTE | 2018-10-31 13:45 | NUR ---
PHYSICAL THERAPY Patient was sitting up in bedside chair with several family / friends visiting this afternoon. Will attempt therapy at a later time as able. Darren Patel, SYRUP MAKER COOK
[2018-10-31 16:00] VITALS: BP 96/50
[2018-10-31 20:00] VITALS: BP 112/64
[2018-11-01] VITALS (9 sets, daily range): BP systolic 114–154; BP diastolic 51–90
--- NOTE | 2018-11-01 02:03 | NUR ---
24 HR chart check completed.
[2018-11-01 06:41] LABS: BASO % 0.1 % (0.0-1.0); HEMATOCRIT 43.8 % (37.0-47.0); HEMOGLOBIN 13.8 g/dl (12.0-16.0); LYMPH # 1.4 10*3/uL (1.3-4.4); MEAN CORPUSCULAR HGB 29.5 pg (27.0-31.0); MEAN CORPUSCULAR HGB CONC 31.5 g/dl (33.0-37.0); MEAN PLATELET VOLUME 10.6 fl (9.6-12.3); MONO # 0.7 10*3/uL (0.1-1.0); MONO % 5.3 % (3.0-9.0); NEUT # 11.3 10*3/uL (2.3-7.9); NEUT % 83.4 % (47.0-73.0); RED BLOOD COUNT 4.68 10*6/uL (4.10-5.10); WHITE BLOOD COUNT 13.6 10*3/uL (4.8-10.8)
[2018-11-01 06:45] LABS: BUN 19 mg/dl (7-24); CREATININE 0.75 mg/dL (0.55-1.02)
[2018-11-01 06:59] LABS: MEAN CELL VOLUME 93.6 fl (81.0-99.0); PLATELET COUNT AUTOMATED 326 10*3/uL (130-400)
[2018-11-01 07:14] LABS: CHLORIDE 100 mmol/L (98-107); SODIUM 135 mmol/L (136-145)
[2018-11-01 07:39] LABS: POTASSIUM 5.7 mmol/L (3.5-5.1)
--- NOTE | 2018-11-01 08:10 | NUR ---
OT NOTE Pt was seen this A.M. 1:1 for 25 minute OT session. Upon arrival pt was supine in bed. Pt identified by name and and had no complaints at this time. Pt presented to therapy with continous 2L-O2 via NC which she remained on throughout entire session. Pt transferred supine to sit EOB with SBA. Functional mobility completed into the bathroom with CGA for safety while pt managed O2 tank, with one verbal prompt for safety awareness due to poor navigation initially. Pt transferred on/off standard commode with SBA and use of grab bar. Pt then sat sink side while washing her hands, face, UB, and completing hair care. Throughout entire session pt had good carry over of pursed lip breathing. Pt returned to the recliner where she was left sitting upright with call light in hand, tray table in place, and phone in reach. Continue with POC as able. FREDDIE Bowie/Jackie
--- NOTE | 2018-11-01 08:10 | NUR ---
PHYSICAL THERAPY Patient seen this am 1:1 for therapy visit and was sitting up in bedside chair upon theapist arrival. Patient presented with continuous O2-2L via NC and reports feeling a little better today with decreased c/o of anxiety. Patient was pleasant this morning tranfering sit to stand SBA and ambulating PROMOTION OFFICER/CGA, 100'x 1, demonstrating slow, steady, even stride, but decreased heel strike. Patient seemed more relaxed this session ambulating and completed all treatment without c/o and with HR / SpO2 staying WFL's. Patient returned to bedside chair and remained with call light, tray table, telephone and body alarm for safety. Will continue per POC as tolerated, total treatment time 14 minutes. Darren Patel, HOSPICE COORDINATOR
--- NOTE | 2018-11-01 10:25 | NUR ---
REPORT CALLED BY OR NURSE LORIN. PATIENT TOLERATED BRONCH WELL. WAITING FOR PATIENT TO RETURN TO FLOOR.
--- NOTE | 2018-11-01 12:29 | NUR ---
Shift chart check completed.
--- NOTE | 2018-11-01 13:59 | NUR ---
PHYSICAL THERAPY Patient seen this pm 1:1 for therapy visit and was sitting up in bedside chair upon therapist arrival. Patient presented this session without O2 and recorded SpO2 93% on RA with HR 65 bpm prior to treatment. Patient transfers sit to stand SBA and ambulates MEASUREMENT AND VERIFICATION ENGINEER/CGA, 150'x 1, demonstrating no c/o's SOB since having Bronchoscope this morning. Patient returned to bedside chair with only minimal fatigue and remained with call light, tray table, telephone and body alarm for safety. Will continue per POC as tolerated, total treatment time 15 minutes. Darren Patel, FOOD QUALITY TESTER
--- NOTE | 2018-11-01 15:20 | NUR ---
PATIENT UPSET THAT SHE WONT HAVE A RIDE IF SHE IS DISCHARGED TOMORROW BUT DOES HAVE A RIDE TODAY. DR RICH CALLED AND PATIENT IS NOT BEING DISCHARGED TODAY, WAITING FOR PENDING BRONCH WASHINGS.
--- NOTE | 2018-11-01 15:42 | NUR ---
MOODY had a call from nursing on 5th floor that pt Kerry had asked to speak with someone. SW went to see pt Kerry who had gotten herself worked up about being discharged tomorrow, stated "no one can pick me up". SW asked if she had sibling or children that could come sometime tomorrow to pick her up. Kerry's concern was that she didn't want to have to wait till afternoon to go home. SW talked with Kerry for sometime. Pt was feeling somewhat better after we spoke. As SW was there a relative called who agreed to pick Kerry up tomorrow afternoon. Her tears stopped and she was smiling when I left. JOBY Olson MSW,SUPPLY CHAIN ASSISTANT
--- NOTE | 2018-11-01 23:00 | NUR ---
ASSUMED CARE FOR THIS PT AT THIS TIME. NO C/O VOICED. CALL LIGHT IN REACH.
[2018-11-02] VITALS: BP 131/76; BP 153/79
--- NOTE | 2018-11-02 05:34 | NUR ---
PT C/O ITCHING ALL OVER. NO REDNESS OR RASH NOTED. WILL MONITOR. WASHCLOTHS AND TOWEL GIVEN TO PT TO BATH.
--- NOTE | 2018-11-02 07:49 | NUR ---
Faxed palliative care order to [facility]
--- NOTE | 2018-11-02 07:49 | NUR ---
PALLIATIVE CARE CONSULT CALLED TO DR CALIX ANSWERING SERVICE AT THIS TIME.
[2018-11-02 08:00] VITALS: BP 102/68
--- NOTE | 2018-11-02 08:22 | NUR ---
PATIENT STATES PALLIATIE CARE CAME IN YESTERDAY AND DISCUSSED OPTIONS YESTERDAY
--- NOTE | 2018-11-02 09:10 | NUR ---
PHYSICAL THERAPY Patient was sitting up in bedside chair this morning upon therapist arrival and was very upset, crying, secondary to being notified she would not be d/c today. Patient states she now has a new infection, per Dr Green and would not be medically stable to return home at this time. Therapist provided emotional support and will continue this pm as able with all goals per POC. Darren Patel, GRIDCAP MACHINE OPERATOR
[2018-11-02 12:00] VITALS: BP 143/62
--- NOTE | 2018-11-02 13:15 | NUR ---
PHYSICAL THERAPY Patient seen this pm 1:1 for therapy visit and was sitting up in bedside chair upon therapist arrival. Patient had several family members present this afternoon and voices no new c/o's at this time. Patient without O2 this session transfering sit to stand SBA and ambulating SOCIAL WORK COORDINATOR/CGA, 125'x 1, demonstrating increased SOB upon return to bedside chair. Patient SpO2 86% on RA, HR 102 bpm. Following seated rest break and v/c for purse lip breathing technique, patient returned to baseline 93% SpO2 and HR 92 bpm. Patient remained in bedside chair with call light, tray table, cell phone and body alarm for safety. Will continue per POC as tolerated, total treatment time 14 minutes. Darren Patel, HOB MILL OPERATOR
--- NOTE | 2018-11-02 13:30 | NUR ---
OT NOTE Pt was seen this P.M. 1:1 for 15 minute OT session. Upon arrival pt was sitting upright in recliner. Pt identified by name and and had no complaints at this time. Pt completed sit to stand transfer from chair level with SBA. Functional mobility completed to the bathroom and back with CGA VMWARE CONSULTANT. Pt required verbal prompts to slow down and decrease talking throughout to avoid becoming SOB. Pt then returned to the recliner where she required verbal and visual prompts for pursed lip breathing due to SpO2 being 86%, after aprox 24 seconds pt's SpO2 raised to 93%. Pt was left sitting upright in recliner with call light in hand, tray table in place, and body alarm on for safety. Continue with rec D/C plan to SNF or home. FREDDIE Bowie/Jackie
--- NOTE | 2018-11-02 14:45 | NUR ---
OCCUPATIONAL THERAPY CO-SIGN I approve of the Occupational Therapy notes written above. JESSICA HAYDEN OTR/Jackie
[2018-11-02 15:06] LABS: ACID FAST SPEC PROCESSING Concentration (.)
[2018-11-02 16:00] VITALS: BP 130/62
[2018-11-02 20:00] VITALS: BP 98/54
[2018-11-03] VITALS: BP 146/82
[2018-11-03 06:45] LABS: BASO % 0.2 % (0.0-1.0); HEMATOCRIT 46.8 % (37.0-47.0); HEMOGLOBIN 14.9 g/dl (12.0-16.0); LYMPH # 1.7 10*3/uL (1.3-4.4); LYMPH % 13.8 % (27.0-41.0); MEAN CELL VOLUME 92.9 fl (81.0-99.0); MEAN CORPUSCULAR HGB 29.6 pg (27.0-31.0); MEAN CORPUSCULAR HGB CONC 31.8 g/dl (33.0-37.0); MEAN PLATELET VOLUME 10.4 fl (9.6-12.3); MONO # 0.6 10*3/uL (0.1-1.0); MONO % 5.3 % (3.0-9.0); NEUT # 9.5 10*3/uL (2.3-7.9); NEUT % 79.4 % (47.0-73.0); PLATELET COUNT AUTOMATED 403 10*3/uL (130-400); RED BLOOD COUNT 5.04 10*6/uL (4.10-5.10)
[2018-11-03 06:58] LABS: BUN 19 mg/dl (7-24); CHLORIDE 102 mmol/L (98-107); CREATININE 0.74 mg/dL (0.55-1.02); POTASSIUM 4.9 mmol/L (3.5-5.1); SODIUM 137 mmol/L (136-145)
[2018-11-03 08:00] VITALS: BP 135/65
[2018-11-03 12:00] VITALS: BP 135/65
--- NOTE | 2018-11-03 12:29 | NUR ---
PHYSICAL THERAPY Patient seen this PM For her therapy session. Pt sitting in bedside chair at time of arrival. Patient informed this BOX GLUER she has already been up walking throughout the day- but was agreeable to perform exercises. Pt performed seated B LE ther-ex, x20 for LE strength, endurance and ROM: marches, LAQs, hip abd/add, ankle PF/DF. Cues and supervision for technique and progression of exercise. Intermittent rest breaks provided throughout. Anaid Goss PTA.
--- NOTE | 2018-11-03 13:20 | NUR ---
SPOKE TO DR SANCHEZ REGARDING WHETHER OR NOT PATIENT IS ABLE TO BE DISCHARGED.
--- NOTE | 2018-11-03 13:27 | NUR ---
SPOKE WITH DR BURKS REGARDING CALL TO [facility]
[2018-11-03] MEDS ORDERED: PREDNISONE10 MG PO (13:40)
[2018-11-03] MEDS ORDERED: IMDUR SA30 MG PO (13:40)
[2018-11-03] MEDS ORDERED: DOXYCYCLINE MO100 M1 PO (13:40)
--- NOTE | 2018-11-03 13:55 | NUR ---
IV discontinued. Site asymptomatic. Pressure applied. Sterile dressing applied. ZEE GILLIAM
--- NOTE | 2018-11-03 14:00 | NUR ---
Discharge instructions reviewed with patient/family. Patient receptive and verbalizes understanding. Follow-up care arranged. Written instructions given to patient/family. ZEE GILLIAM
--- NOTE | 2018-11-03 14:00 | NUR ---
A 68 YEAR OLD FEMALE PATIENT, admitted to 5E, under the services of IRWIN Abdul DO with a diagnosis of CHEST PAIN. Chief complaint is [id number], CHEST WALL PAIN. Patient arrived via CART WITH RN from ER. Monitor applied. Initial assessment completed. Vital signs taken and recorded. See assessment for past medical history, medications and allergies. Patient and/or family oriented to unit. [facility] visitation policy reviewed. Clothing/patient valuable form completed. ZEE GILLIAM
--- NOTE | 2018-11-03 14:21 | NUR ---
PATIENT OFF THE FLOOR WITH DAUGHTER AT THIS TIME. ALL BELONGINGS SENT WITH PATIENT
--- NOTE | 2018-11-05 07:54 | NUR ---
PHYSICAL THERAPY CO-SIGN I approve of the Phyical Therapy notes written above. ERVIN RODRIGUEZ PT
[2018-11-20] MEDS ORDERED: LASIX40 MG PO (11:45)
[2018-11-20] MEDS ORDERED: VITAMIN D32000 UNI1 PO (11:45)
[2018-11-20] MEDS ORDERED: ENOXAPARIN40 MG/0.2 SC (11:45)
[2018-11-23] MEDS ORDERED: RIVASTIGMINE TAR3 M1 PO (09:17)
[2018-11-23] MEDS ORDERED: RISPERIDONE1 MG PO (09:17)
[2018-11-23] MEDS ORDERED: MIRTAZAPINE15 M2 PO (09:17)
[2018-12-13 08:07] LABS: ACID FAST CULTURE Negative (.)
== END 2018-11-03 14:25 | disposition home health service (06) | DRG 190 ==
LOC: ED 11:22 → 5E 15:19 → EDHOLD 15:19 → 5E 15:32
PROVIDERS: Emergency Medicine; Internal Medicine; Internal Medicine Critical Care Medicine; Student in an Organized Health Care Education/Training Program; ADMIT Internal Medicine
DX: J44.1 Chronic obstructive pulmonary disease with (acute) exacerbation (principal); J18.9 Pneumonia, unspecified organism; F33.1 Major depressive disorder, recurrent, moderate; J44.0 Chronic obstructive pulmonary disease with (acute) lower respiratory infection; R73.9 Hyperglycemia, unspecified; R82.71 Bacteriuria; E86.0 Dehydration; I25.10 Atherosclerotic heart disease of native coronary artery without angina pectoris; E78.5 Hyperlipidemia, unspecified; I73.9 Peripheral vascular disease, unspecified; F12.10 Cannabis abuse, uncomplicated; I10 Essential (primary) hypertension; E55.9 Vitamin D deficiency, unspecified; F41.1 Generalized anxiety disorder; I25.5 Ischemic cardiomyopathy; I25.82 Chronic total occlusion of coronary artery; F17.210 Nicotine dependence, cigarettes, uncomplicated; Z53.29 Procedure and treatment not carried out because of patient's decision for other reasons; Z51.5 Encounter for palliative care; I25.2 Old myocardial infarction; Z98.51 Tubal ligation status; Z81.8 Family history of other mental and behavioral disorders; Z80.42 Family history of malignant neoplasm of prostate; Z90.49 Acquired absence of other specified parts of digestive tract; Z90.710 Acquired absence of both cervix and uterus; Z79.899 Other long term (current) drug therapy; Z91.013 Allergy to seafood; Z82.49 Family history of ischemic heart disease and other diseases of the circulatory system; Z83.3 Family history of diabetes mellitus; Z91.040 Latex allergy status; Z90.79 Acquired absence of other genital organ(s); Z90.722 Acquired absence of ovaries, bilateral; X58.XXXA Exposure to other specified factors, initial encounter; Y93.89 Activity, other specified; Y92.89 Other specified places as the place of occurrence of the external cause; Y99.8 Other external cause status; J98.09 Other diseases of bronchus, not elsewhere classified

== ENCOUNTER → 2019-01-25 | Outpatient (CLI) | payer OTHER ==
[~2019-01-25] MED LIST changes: +ALL DAY ALLERGY10 M2 PO; +DOXYCYCLINE MO100 M1 PO; +ENOXAPARIN40 MG/0.2 SC; +IMDUR SA30 MG PO; +LASIX40 MG PO; +LOVASTATIN10 MG PO; +LYRICA50 M1 PO; +MIRTAZAPINE15 M2 PO; +OXYBUTYNIN CHLOR5 MG PO; +PLAVIX75 M1 PO; +POTASSIUM CHLO20 ME4 PO; +PREDNISONE10 MG PO; +PREDNISONE20 M1 PO; +RISPERIDONE1 MG PO; +RIVASTIGMINE TAR3 M1 PO; +TOPROL XL50 M1 PO; +VITAMIN D32000 UNI1 PO; +ZESTRIL,PRINIVIL5 MG PO
== END | disposition home or self-care (01) ==
LOC: RESCLI 01:17
DX: I25.10 Atherosclerotic heart disease of native coronary artery without angina pectoris (principal); E78.5 Hyperlipidemia, unspecified; F32.9 Major depressive disorder, single episode, unspecified; N32.81 Overactive bladder; I10 Essential (primary) hypertension; G30.9 Alzheimer's disease, unspecified; F02.80 Dementia in other diseases classified elsewhere, unspecified severity, without behavioral disturbance, psychotic disturbance, mood disturbance, and anxiety; J44.9 Chronic obstructive pulmonary disease, unspecified; J30.2 Other seasonal allergic rhinitis; F17.200 Nicotine dependence, unspecified, uncomplicated; Z79.899 Other long term (current) drug therapy